=== PATIENT | male | born 1960 | race Caucasian/White ===

== ENCOUNTER → 2016-07-29 | Outpatient (CLI) | payer BC ==
--- NOTE | 2016-07-29 21:08 | PN ---
This is a compliancy follow-up. Rickey is 56, diagnosed having severe obstructive sleep apnea. The patient was referred to me for concerns of obstructive sleep apnea and the patient was found to have severe NEELA with an AHI of 53 with nocturnal oxygen desaturation. The patient underwent CPAP titration that was titrated adequately to a CPAP pressure of 10 cm of water. On today's evaluation, the patient is doing great. He is benefiting from CPAP therapy and is much more alert during the day and his sleep quality has improved considerably. He is utilizing a Simplus full face mask. Compliance data over the past 30 days, shows 100% use with an average CPAP use of 6.8 hours per night. No leaks around the mask. His leak factor is 13 liters per minute and his AHI is down to 4.3. As such, this is a successful treatment. BP is 150/70, pulse 74, respirations 16, temperature 98.1. Weight is 372. GENERAL APPEARANCE: Obese, calm, comfortable. HEENT: Short neck, crowding of the posterior pharynx. Mallampati Class IV. There is no goiter or neck masses. LUNGS: Clear to auscultation. HEART: Sounds are regular rate and rhythm. Normal S1 and S2. No S3. No S4. No murmurs. ABDOMEN: Soft, nontender. No organomegaly. EXTREMITIES: No edema. No cyanosis, or clubbing. IMPRESSION: 1. Severe symptomatic obstructive sleep apnea with an AHI of 53. The patient underwent successful therapy with CPAP pressure of 10 cm of water demonstrating adequate clinical response and compliance. 2. Hypersomnia, improving. 3. Obesity with a body mass index of 47. PLAN: 1. The patient is happy with the treatment. 2. Continue treatment at the same level of pressure. 3. Implement good sleep hygiene measures. 4. Encourage weight loss. 5. See me back in a year's time; earlier if needed. 6. Hypersomnia, improved. 7. [place] score is down to 5. 8. Will continue to follow.
== END | disposition home or self-care (01) ==
LOC: SLEEP 15:05
PROVIDERS: ATTEND Internal Medicine Critical Care Medicine
DX: G47.33 Obstructive sleep apnea (adult) (pediatric) (principal); G47.10 Hypersomnia, unspecified; E66.9 Obesity, unspecified; Z68.42 Body mass index [BMI] 45.0-49.9, adult

== ENCOUNTER → 2017-09-03 | Outpatient (CLI) | payer OTHER ==
--- NOTE | 2017-09-03 10:20 | XR ---
EXAMINATION TYPE: XR chest 2V DATE OF EXAM: 09/03/2017 COMPARISON: NONE HISTORY: Shortness of breath TECHNIQUE: Frontal and lateral views of the chest are obtained. FINDINGS: Scattered senescent parenchymal changes noted. Hyperinflation compatible with COPD. No evidence for infiltrate. No evidence for atelectasis. Heart size is stable. Mediastinal structures are stable and grossly unremarkable. No evidence for hilar prominence. Degenerative changes dorsal spine. IMPRESSION: 1. No evidence for acute pulmonary disease.
--- NOTE | 2017-09-03 10:22 | XR ---
EXAMINATION TYPE: XR ribs LT DATE OF EXAM: 09/03/2017 CLINICAL HISTORY: Pain, Fall Four views of the ribs fail demonstrate evidence for displaced rib fracture or secondary sign of rib fracture. Visualized lungs are clear. No evidence for pneumothorax. IMPRESSION: No displaced rib fractures seen. ICD 10 NO FRACTURE, INITIAL EVALUATION
== END | disposition home or self-care (01) ==
LOC: RADXRMAIN 09:49
PROVIDERS: ATTEND Emergency Medicine
DX: S20.302A Unspecified superficial injuries of left front wall of thorax, initial encounter (principal)
CPT/HCPCS: 71046

== ENCOUNTER 2017-12-25 08:38 | Day surgery (SDC) | payer BC ==
[2017-12-23 16:19] VITALS: BMI 43.8
[2017-12-25 08:54] VITALS: TEMP 97
[2017-12-25] MEDS: LACTATED RINGERS 1,000 ML IV SCH ×3 (09:04→11:17)
[2017-12-25] MEDS ORDERED: LIDOCAINE 1% 20 ML VIAL (10MG/ML) FOR IV START INTRADERMA ONE (09:05)
[2017-12-25] MEDS ORDERED: LIDOCAINE 1% INJ 10MG/ML (20 ML MDV) ONE (11:19)
[2017-12-25] MEDS ORDERED: PROPOFOL 10 MG/ML 20 ML VIAL IV ONE (11:19)
--- NOTE | 2017-12-25 11:21 | P.GSHP ---
History of Present Illness H&P Date: 12/25/17 Chief Complaint: history of colon polyps this a 57-year-old male presents today for colonoscopy. Patient has a history of colonic polyps. His last colonoscopy was 3 or 4 years ago. Ahe denies any significant GI complaints. Past Medical History Past Medical History: Prostate Disorder Additional Past Medical History / Comment(s): constipation History of Any Multi-Drug Resistant Organisms: None Reported Past Surgical History: Appendectomy, Hernia Repair, Orthopedic Surgery Additional Past Surgical History / Comment(s): katerine shoulders rotator cuff, left knee arthroscopy, left ankle arthroscopy Past Anesthesia/Blood Transfusion Reactions: No Reported Reaction Smoking Status: Never smoker - Past Family History Brother(s) Family Medical History: Cancer Father Family Medical History: Cancer Medications and Allergies Home Medications Medication Instructions Recorded Confirmed Type Loratadine [Claritin] 10 mg PO DAILY 12/23/17 12/25/17 History Multivitamin [Men's Multi-Vitamin] 1 each PO DAILY 12/23/17 12/25/17 History Allergies Allergy/AdvReac Type Severity Reaction Status Date / Time No Known Allergies Allergy Verified 12/25/17 08:47 Surgical - Exam Vital Signs Temp Pulse Resp BP Pulse Ox 97 F L 65 16 134/81 98 12/25/17 08:53 12/25/17 08:53 12/25/17 08:53 12/25/17 08:53 12/25/17 08:53 - General well developed, no distress - Eyes PERRL - ENT normal pinna - Neck no masses - Respiratory normal expansion - Cardiovascular Rhythm: regular - Abdomen Abdomen: soft, non tender Assessment and Plan Assessment: history of colon polyps. We'll perform colonoscopy.
--- NOTE | 2017-12-25 11:37 | P.OP ---
Date of Procedure: 12/25/17 Preoperative Diagnosis: history of colon polyps Postoperative Diagnosis: diverticulosis Procedure(s) Performed: colonoscopy Anesthesia: MAC Surgeon: Gabriel Wick Pathology: none sent Condition: stable Disposition: PACU Description of Procedure: the patient's placed on the endoscopy table in the lateral position. He received IV sedation. Digital rectal exam was performed which revealed no abnormalities. Flexible colonoscope was then placed patient anus passed throughout the entire colon. The ileocecal valve was visualized. The cecum, ascending and transverse colon appeared normal. In the descendingand sigmoid there is mild diverticular changes. Scope was then brought back the rectum and this appeared normal. Scope was withdrawn for patient.
[2017-12-25 11:41] VITALS: RESP 18
[2017-12-25 12:11] VITALS: BP 142/90; PULSE 70
== END 2017-12-25 12:19 | disposition home or self-care (01) ==
LOC: ORWHC2ENDO 08:38
PROVIDERS: ATTEND Surgery
DX: K57.30 Diverticulosis of large intestine without perforation or abscess without bleeding (principal); E66.01 Morbid (severe) obesity due to excess calories; Z86.010 Personal history of colon polyps; Z79.899 Other long term (current) drug therapy; Z68.41 Body mass index [BMI] 40.0-44.9, adult
CPT/HCPCS: 45378; J2001; J2704

== ENCOUNTER → 2018-10-12 | Outpatient (CLI) | payer BC ==
--- NOTE | 2018-10-12 16:03 | PN ---
PROGRESS NOTE Rickey is a 58-year-old male patient, obese, who is coming in for followup regarding NEELA. The patient was diagnosed having severe NEELA with an AHI of 53 a few years back, and the patient has been on CPAP pressure of 13 cm of water. He has been extremely compliant and has not been having any issues with his CPAP use. The patient has been maintaining his weight and currently weighs around 370 pounds, which is probably 2 pounds less compared to his original weight in 2017. His treatment has remained extremely successful. He has no specific complaints for now. I checked the compliancy data, and the patient has been averaging around 7.1 hours of CPAP use per night and his CPAP use for more than 4 hours is 100%. Leak is around 29 L/minute while using the Simplus large-sized full-face mask, and his AHI is down to 0.5. He is interested in a portable CPAP unit, knowing that the patient goes camping once in a while, he is absolutely dependent on the CPAP machine, and he does not want to skip any days, as he feels quite symptomatic the day after not using his CPAP unit. No issues with the mask interface. No facial pain or irritation or aerophagia. No other issues with tolerability. The patient has been extremely compliant. He is taking loratadine and nasal sprays regarding his chronic sinus allergies, as the patient has grass and hayfever ALLERGIES. REVIEW OF SYSTEMS: Fourteen-point review of systems was done. Positive findings are all mentioned above in the history of present illness. Of significance is the absence of any snoring while on the CPAP unit. No excessive fatigue or sleepiness. No witnessed apneas. No choking or gasping for air. No grinding of the teeth. No sleepwalking. No dry mouth. No anxiety. No panic attacks. No palpitations. No heartburn. No sweating. No anxiety. No claustrophobia. No depression. No issues with memory or concentration. He has been quite alert and awake during the day. PHYSICAL EXAMINATION: VITAL SIGNS: BP is 135/75, pulse 66, respirations 16, temperature 98.0, saturation 97% on room air. Height is 6 feet 3 inches. Weight is 370. BMI is 46.2. GENERAL APPEARANCE: Calm, comfortable. HEAD: Atraumatic, normocephalic. NECK: Supple. There is no JVD. No goiter or neck masses. Mallampati class IV. LUNGS: Clear to auscultation. HEART: Heart sounds are regular rate and rhythm. Normal S1, S2. No S3, S4. No murmurs. ABDOMEN: Soft, nontender. No organomegaly. EXTREMITIES: No edema. No cyanosis or clubbing. NEUROLOGIC: The patient is alert and oriented x3. There are no focal neurological deficits. PSYCHIATRY: Negative for anxiety or depression. SKIN: Negative for any wounds or ulcerations. IMPRESSION: 1. Severe symptomatic obstructive sleep apnea, apnea/hypopnea index of 53. The patient continues to receive successful CPAP treatment at a pressure of 13 cm of water. 2. Obesity; body mass index of 46.2. 3. Hypersomnia, recovered. [place] score is down to 2. 4. Chronic sinus allergies, essentially related to environmental agents. PLAN: 1. Renew the patient's CPAP supplies. 2. Encourage weight loss. 3. Recommend a portable Respironics CPAP unit if affordable. This will be set at the same pressure of 13 cm of water with a battery kit for outdoor use, especially during camping. 4. The patient has purchased a SoClean. 5. See me back in a few years' time in followup regarding his symptomatic obstructive sleep apnea. MMODL / IJN: [id number] /
== END | disposition home or self-care (01) ==
LOC: SLEEP 14:07
PROVIDERS: ATTEND Internal Medicine Critical Care Medicine
DX: G47.33 Obstructive sleep apnea (adult) (pediatric) (principal); J30.89 Other allergic rhinitis; Z68.42 Body mass index [BMI] 45.0-49.9, adult; E66.9 Obesity, unspecified; Z99.89 Dependence on other enabling machines and devices

== ENCOUNTER 2020-06-06 08:08 | Day surgery (SDC) | payer BC ==
[2020-06-04 10:16] VITALS: BMI 45.6
[~2020-06-06 08:08] MED LIST: ACETAMINOPHEN TAB 500 MG TAB PO PRN; HEPARIN SODIUM,PORCINE 5,000 UNIT/ML 1 ML VIAL SQ PRN; HYDROmorphone 0.5 MG/0.5 ML SYRINGE IVP PRN; LACTATED RINGERS 1,000 ML IV SCH; ONDANSETRON 4 MG/2 ML VIAL IVP ONE; Pre Op ABX Message 1 EACH MISC MISCELLANE ONE; fentaNYL (PF) 50 MCG/ML 2 ML AMP IV PRN
[2020-06-06] MEDS ORDERED: LIDOCAINE 1% (10MG/ML) FOR IV START INTRADERMA ONE (09:08)
[2020-06-06] MEDS ORDERED: DEXAMETHASONE SOD PHOSPHATE 10 MG/ML 1 ML VIAL IV ONE (09:15)
--- NOTE | 2020-06-06 09:45 | P.GSHP ---
History of Present Illness H&P Date: 06/06/20 Chief Complaint: Internal/external hemorrhoids, anal fissure Is a 60-year-old male has a chronic history of rectal pain from internal hemorrhoids. Patient also has anal fissure. Patient rents today for examination anesthesia and hemorrhoidectomy. Past Medical History Past Medical History: Sleep Apnea/CPAP/BIPAP Additional Past Medical History / Comment(s): constipation, uses C-pap machine, Seasonal Allergies, hemorrhoids History of Any Multi-Drug Resistant Organisms: None Reported Past Surgical History: Appendectomy, Hernia Repair, Orthopedic Surgery Additional Past Surgical History / Comment(s): katerine shoulders rotator cuff, left knee arthroscopy, left ankle arthroscopy Past Anesthesia/Blood Transfusion Reactions: No Reported Reaction Past Psychological History: No Psychological Hx Reported Smoking Status: Never smoker Past Alcohol Use History: Occasional Past Drug Use History: None Reported - Past Family History Brother(s) Family Medical History: Cancer Additional Family Medical History / Comment(s): hodgkins Father Family Medical History: Cancer Additional Family Medical History / Comment(s): lung cancer Medications and Allergies Home Medications Medication Instructions Recorded Confirmed Type Loratadine [Claritin] 10 mg PO DAILY 12/23/17 06/06/20 History Multivit-Min/FA/Lycopen/Lutein 1 each PO DAILY 06/04/20 06/04/20 History [Centrum Silver Tablet] Allergies Allergy/AdvReac Type Severity Reaction Status Date / Time No Known Allergies Allergy Verified 06/04/20 09:53 Surgical - Exam Vital Signs Temp Pulse Resp BP Pulse Ox 97.4 F L 62 16 156/73 98 06/06/20 08:52 06/06/20 08:52 06/06/20 08:52 06/06/20 08:52 06/06/20 08:52 BMI 45 - General well developed, no distress - Eyes PERRL - ENT normal pinna - Neck no masses - Respiratory normal expansion - Cardiovascular Rhythm: regular - Abdomen Abdomen: soft, non tender - Rectum Internal and external hemorrhoids, history of chronic anal fissure Assessment and Plan Assessment: Internal and external hemorrhoids, anal fissure. We will undergo internal and external hemorrhoidectomy as well as exam under anesthesia.
[2020-06-06] MEDS ORDERED: PROPOFOL 10 MG/ML 20 ML VIAL IV ONE (09:59)
[2020-06-06] MEDS ORDERED: fentaNYL (PF) 50 MCG/ML 2 ML AMP ONE (09:59)
[2020-06-06] MEDS ORDERED: LIDOCAINE 1% INJ 10MG/ML (20 ML MDV) ONE (09:59)
[2020-06-06] MEDS ORDERED: SUCCINYLCHOLINE CHLORIDE VIAL 200 MG/10 ML VIAL IV ONE (09:59)
[2020-06-06] MEDS ORDERED: MIDAZOLAM 2 MG/2 ML VIAL ONE (09:59)
[2020-06-06] MEDS ORDERED: SODIUM CHLORIDE 0.9% 50 ML with ceFAZolin 3,000 MG IV ONE ×2 (10:22)
[2020-06-06] MEDS ORDERED: LIDOCAINE 1%-EPI 1:100,000 20 ML VIAL SQ ONE (10:33)
[2020-06-06] MEDS ORDERED: LACTATED RINGERS 1,000 ML IV ONE (10:36)
--- NOTE | 2020-06-06 10:44 | P.OP ---
Date of Procedure: 06/06/20 Preoperative Diagnosis: Anal fissure, internal/external hemorrhoids Postoperative Diagnosis: Fissure, internal and external hemorrhoids Procedure(s) Performed: Hemorrhoidectomy Anal fissurectectomy Anesthesia: BLAZE Surgeon: Gabriel Wick Estimated Blood Loss (ml): 10 Pathology: other (Internal and external hemorrhoids) Condition: stable Disposition: PACU Description of Procedure: The patient's placed on the operating table in the prone jackknife position. He received general endotracheal tube anesthesia. His anus was prepped and draped in sterile fashion. The patient had a anal fissure at the 6 o'clock position. Using the anal probe this was tracked to the level of the anus. The fissure was then unroofed using cautery. Next the hemorrhoidal column at the left lateral position was grasped as clamp and then dissected using Harmonic scissors. A similar hemorrhoidal column in the right anterior position was grasped and was clamped and dissected with Harmonic scissors. The wound was 8 cyst. Resolving seen. Patient top she will was sent to recovery room stable condition.
[2020-06-06 11:02] VITALS: TEMP 97.6
[2020-06-06 11:36] VITALS: RESP 16
[2020-06-06 11:54] VITALS: BP 127/77; PULSE 70
== END 2020-06-06 12:12 | disposition home or self-care (01) ==
LOC: OR 08:08
PROVIDERS: ATTEND Surgery
DX: K64.8 Other hemorrhoids (principal); K64.4 Residual hemorrhoidal skin tags; K60.2 Anal fissure, unspecified; G47.30 Sleep apnea, unspecified; Z99.89 Dependence on other enabling machines and devices; J30.2 Other seasonal allergic rhinitis; Z98.890 Other specified postprocedural states; Z90.89 Acquired absence of other organs; Z80.7 Family history of other malignant neoplasms of lymphoid, hematopoietic and related tissues; Z80.1 Family history of malignant neoplasm of trachea, bronchus and lung; Z79.899 Other long term (current) drug therapy
CPT/HCPCS: 46261; J2250; J0330; J1644; J1100; J2405; J0690; J2001; J3010; J2704; 88304